=== PATIENT | male | born 1990 | race Two or more races ===

== ENCOUNTER 2018-02-07 18:30 | Inpatient (IN) | payer OTHER ==
[2018-02-07 19:39] VITALS: BMI 32.1
--- NOTE | 2018-02-07 19:42 | HP ---
CIWA Score Nausea/Vomitin-No Nausea/No Vomiting Muscle Tremors: 2 Anxiety: 4-Mod. Anxious/Guarded Agitation: 4-Moderately Restless Paroxysmal Sweats: 3 Orientation: 0-Oriented Tacttile Disturbances: 0-None Auditory Disturbances: 0-None Visual Disturbances: 0-None Headache: 0-None Present CIWA-Ar Total Score: 13 - Admission Criteria OASAS Guidelines: Admission for Medically Managed Detox: Requires at least one of the followin. CIWA greater than 12 2. Seizures within the past 24 hours 3. Delirium tremens within the past 24 hours 4. Hallucinations within the past 24 hours 5. Acute intervention needed for co occurring medical disorder 6. Acute intervention needed for co occurring psychiatric disorder 7. Severe withdrawal that cannot be handled at a lower level of care (continued vomiting, continued diarrhea, abnormal vital signs) requiring intravenous medication and/or fluids 8. Patient presents the following: CIWA greater than 12 Admission Criteria Met: Admission criteria met Admission ROS S - HPI Chief Complaint: "I want to detox myself. I am doing more and more and just need to stop" Allergies/Adverse Reactions: Allergies Allergy/AdvReac Type Severity Reaction Status Date / Time meloxicam Allergy Severe Swelling Verified 02/07/18 19:12 Penicillins Allergy Severe Swelling Verified 02/07/18 19:12 shellfish derived Allergy Severe Swelling Verified 02/07/18 19:12 History of Present Illness: 27 y/o male with a long history of drug addiction present today requesting detox from oxycodones, xanax and percocets. Pt states he has beein using percocets from age 17 and xanax from about [age] yrs of age. Pt was last here in 2014 after whiuch he states he has been using. This is his second attempt at detox and is self referred. Endorses withdrawal related seizures, last seizure about a yr ago. Denies past or current suicidal ideation/attempt. Hx - Asthma, Seizures, Eczema, Depression, Insomnia. Others' Prescriptions Patient Name: Fredrick Green Date: 1990 Address: [address] [place] [address] Sex: Male Rx Written Rx Dispensed Drug Quantity Days Supply Prescriber Name 02/05/2018 02/06/2018 endocet 10-325 mg tablet 120 30 Poonam Cosby) 01/08/2018 01/08/2018 endocet 10-325 mg tablet 120 30 Poonam Cosby) 12/11/2017 12/11/2017 oxycodone-acetaminophen 10-325 mg tab 120 30 Poonam Cosby) 11/12/2017 11/12/2017 oxycodone-acetaminophen 10-325 mg tab 120 30 Poonam Cosby) 10/15/2017 10/15/2017 oxycodone-acetaminophen 10-325 mg tab 110 28 Poonam Cosby) 09/17/2017 09/17/2017 oxycodone-acetaminophen 10-325 mg tab 120 30 Poonam Cosby) 08/15/2017 08/15/2017 oxycodone-acetaminophen 10-325 mg tab 120 30 Poonam Cosby) 07/18/2017 07/18/2017 endocet 10-325 mg tablet 120 30 [facility] 06/18/2017 06/18/2017 endocet 10-325 mg tablet 120 30 [facility] 05/21/2017 05/22/2017 endocet 10-325 mg tablet 90 30 [facility] 04/23/2017 04/23/2017 endocet 10-325 mg tablet 90 30 [facility] 04/14/2017 04/14/2017 oxycodone-acetaminophen 5-325 mg tab 20 10 Ragini Holden) 04/10/2017 04/10/2017 oxycodone-acetaminophen 5-325 mg tab 5 2 Ragini Holden) 03/12/2017 03/12/2017 acetaminophen-cod #3 tablet 14 7 Scarlett Wolf MD 02/28/2017 02/28/2017 oxycodone-acetaminophen 5-325 mg tab 20 10 Ragini Holden) 02/24/2017 02/25/2017 endocet 10-325 mg tablet 28 7 Ragini Holden) 02/19/2017 02/20/2017 endocet 10-325 mg tablet 28 7 Ragini Holden) Pt's utox positive for Oxy, THC and BZo's Pt requesting to be detoxed from opiates and Benzos, he admitted picking up his prescription from the pharmacy yesterday (after he had initially denied it), but stated he forgot it in the cab he took. Explained to pt that in view of his prescribed Percocets, he will be detoxed based on his positive Bzo in the urine. Explained also that symptoms of opiate withdrawal if any will be managed. Exam Limitations: No Limitations - Ebola screening Have you traveled outside of the country in the last 21 days: No (N) Have you had contact with anyone from an Ebola affected area: No Have you been sick,other than usual withdrawal symptoms: No Do you have a fever: No - Review of Systems Constitutional: Night Sweats, Changes in sleep Respiratory: reports: Wheezing (Hx of asthma, none at this time) Cardiac: reports: No Symptoms Reported GI: reports: Vomiting : reports: No Symptoms Reported Musculoskeletal: reports: Back Pain, Joint Pain, Other (SCrews in R shoulder s/ p dislocation) Integumentary: reports: Other (generalized eczema) Neuro: reports: No Symptoms reported Endocrine: reports: No Symptoms Reported Hematology: reports: No Symptoms Reported Psychiatric: reports: Orientated x3, Anxious, Depressed Other Systems: Reviewed and Negative Patient History - Patient Medical History Hx Anemia: No Hx Asthma: Yes (On meds) Hx Chronic Obstructive Pulmonary Disease (COPD): No Hx Cancer: No Hx Cardiac Disorders: No Hx Congestive Heart Failure: No Hx Hypertension: No (reactive hypertension intermittent ) Hx Hypercholesterolemia: No Hx Pacemaker: No HX Cerebrovascular Accident: No Hx Seizures: Yes (ON MEDS KEPPRA) Hx Dementia: No Hx Diabetes: No Hx Gastrointestinal Disorders: No Hx Liver Disease: No Hx Genitourinary Disorders: No Hx Sexually Transmitted Disorders: No Hx Renal Disease (ESRD): No Hx Thyroid Disease: No Hx Human Immunodeficiency Virus (HIV): No Hx Hepatitis C: No Hx Depression: Yes (not medicated ) Hx Suicide Attempt: No (Denies) Hx Bipolar Disorder: No Hx Schizophrenia: No - Patient Surgical History Past Surgical History: Yes Hx Neurologic Surgery: Yes (right shoulder nerve release 01/2017) Hx Cataract Extraction: No Hx Cardiac Surgery: No Hx Lung Surgery: No Hx Breast Surgery: No Hx Breast Biopsy: No Hx Abdominal Surgery: No Hx Appendectomy: No Hx Cholecystectomy: No Hx Genitourinary Surgery: No Hx Orthopedic Surgery: Yes (right foot 2007, R shoulder 01/2018) Hx Hysterectomy: No Anesthesia Reaction: No - PPD History Previous Implant?: Yes Documented Results: Negative w/proof Date: 11/07/15 PPD to be Administered?: Yes - Reproductive History Patient is a Female of Child Bearing Age (11 -55 yrs old): No - Smoking Cessation Smoking history: Current every day smoker Have you smoked in the past 12 months: Yes Aproximately how many cigarettes per day: 20 Cigars Per Day: 0 Hx Chewing Tobacco Use: No Initiated information on smoking cessation: Yes 'Breaking Loose' booklet given: 02/07/18 - Substance & Tx. History Hx Alcohol Use: No Hx Substance Use: Yes Substance Use Type: Opiates, Tranquilizers Hx Substance Use Treatment: Yes - Substances Abused Alprazolam (Xanax) Route: Oral Frequency: Daily Amount used: 6-10 (2mg) tablets Age of first use: 20 Date of Last Use: 02/07/18 Oxycontin Route: Oral Frequency: Daily Amount used: 3-4 (30 mg) tablets Age of first use: 17 Date of Last Use: 02/07/18 Marijuana/Hashish Route: Smoking Frequency: Daily Amount used: 7-9 grams Age of first use: 12 Date of Last Use: 02/07/18 percocept Route: Oral Frequency: Daily Amount used: 8-12 (10mg) tablet Age of first use: 17 Date of Last Use: 02/07/18 Family Disease History - Family Disease History Family Disease History: Other: Father (, Alcohol, Depression), Mother ( Anxiety, Insomnia) Admission Physical Exam S - Vital Signs Vital Signs: Vital Signs - 24 hr 02/07/18 18:45 Temperature 97.7 F Pulse Rate 97 H Respiratory 18 Rate Blood Pressure 147/91 - Physical General Appearance: Yes: Mild Distress, Anxious HEENTM: Yes: Within Normal Limits Respiratory: Yes: Lungs Clear, No Respiratory Distress, No Accessory Muscle Use Neck: Yes: No masses,lesions,Nodules, Trachea in good position Breast: Yes: Breast Exam Deferred Cardiology: Yes: Regular Rate Abdominal: Yes: Non Tender, Soft Genitourinary: Yes: Within Normal Limits Back: Yes: Normal Inspection, Other Musculoskeletal: Yes: full range of Motion, Gait Steady Extremities: Yes: Normal Capillary Refill, Normal Inspection Neurological: Yes: Within Normal Limits, Fully Oriented, Alert, Motor Strength 5 /5 Integumentary: Yes: Dry, Other (generalized dry scaly skin) - Diagnostic (1) Uncomplicated opioid dependence Current Visit: Yes Status: Acute (2) Sedative hypnotic or anxiolytic dependence Current Visit: Yes Status: Acute (3) Asthma Current Visit: Yes Status: Chronic (4) Depression (emotion) Current Visit: Yes Status: Chronic (5) Seizures Current Visit: Yes Status: Chronic (6) Cannabis dependence Current Visit: Yes Status: Chronic Cleared for Admission [facility] - Detox or Rehab [facility] Level of Care: Medically Managed Detox Regimen/Protocol: Valium [facility] Breath Alcohol Content Breath Alcohol Content: 0 Urine Drug Screen - Results Drug Screen Negative: No Urine Drug Screen Results: THC-Marijuana, BZO-Benzodiazepines, OXY-Oxycodone
[2018-02-07] MEDS ORDERED: guaiFENesin/D-METHORPHAN HB 10 ML UNIT-DOSE CUPS PO PRN (20:32)
[2018-02-07] MEDS ORDERED: MAG HYDROX/AL HYDROX/SIMETH 30 ML UNIT-DOSE CUP PO PRN (20:32)
[2018-02-07] MEDS ORDERED: MENTHOL/PHENOL 1 EACH UD MM PRN (20:32)
[2018-02-07] MEDS ORDERED: METHADONE HCL 10 MG TABLET (FOR DETOX USE ONLY) PO ONE ×2 (20:32→23:00)
[2018-02-07] MEDS ORDERED: LOPERAMIDE HCL 2 MG CAPSULE PO PRN (20:32)
[2018-02-07] MEDS ORDERED: P-EPHED 60MG/TRIPROLIDI 2.5MG TABLET PO PRN (20:32)
[2018-02-07] MEDS ORDERED: MAGNESIUM CITRATE 300 ML BOTTLE PO PRN (20:32)
[2018-02-07] MEDS ORDERED: MAGNESIUM HYDROX 2400MG/30ML ORAL SUSPENSION 30 ML CUP PO PRN (20:32)
[2018-02-07] MEDS ORDERED: diazePAM 5 MG TABLET PO ONE (20:32)
[2018-02-07] MEDS ORDERED: ALBUTEROL SO4 2.5/IPRATROPIUM 0.5 INH SOL 3 ML VIAL.NEB. NEB PRN (20:43)
[2018-02-07] MEDS: levETIRAcetam 500 MG TABLET (FP) PO SCH (22:07)
[2018-02-07] MEDS: TRIAMCINOLONE ACET 0.1% OINT 15 GM TUBE TP SCH (22:07)
[2018-02-07] MEDS: MONTELUKAST NA 10 MG TABLET PO SCH (22:07)
[2018-02-07] MEDS: MELATONIN 5 MG TABLETS PO PRN (22:07)
[2018-02-07] MEDS: diazePAM 5 MG TABLET PO SCH (22:07)
[2018-02-07] MEDS: THIAMINE HCL 100 MG TABLET (FP) PO SCH (22:07)
[2018-02-07] MEDS: cloNIDine HCL 0.1 MG TABLET PO PRN (22:07)
[2018-02-07] MEDS: NICOTINE POLACRILEX 4 MG GUM BUC PRN (22:50)
[2018-02-08] MEDS: diazePAM 5 MG TABLET PO PRN ×4 (01:36→19:22)
[2018-02-08] MEDS: ALBUTEROL SO4 8 GM HFA INHALER IH PRN ×2 (01:36→19:26)
[2018-02-08] MEDS: ACETAMINOPHEN 325 MG TABLET (FP) PO PRN ×3 (01:37→18:10)
[2018-02-08] MEDS: NICOTINE POLACRILEX 4 MG GUM BUC PRN ×5 (02:32→23:46)
[2018-02-08] MEDS ORDERED: hydrOXYzine PAMOATE 50 MG CAPSULE (FP) PO ONE (02:37)
[2018-02-08] MEDS: diazePAM 5 MG TABLET PO SCH ×3 (05:17→22:19)
[2018-02-08] MEDS: cloNIDine HCL 0.1 MG TABLET PO PRN ×3 (06:01→22:19)
--- NOTE | 2018-02-08 07:43 | CONSULT ---
[facility] Psychiatric Consult - Data Date of interview: 02/08/18 Admission source: Self-referred Identifying data: Mr Green is a 27 years old single male, father of 2 children, unemployed on SSI, domiciled seeking detox treatment for Opioid, Bezodiaxepine and Cannabis Substance Abuse History: Reports history of percocet, oxycontin, xanax and marijuana use. Refer to addiction counselor's summary for further information Medical History: Significant for bronchial asthma, eczema, seizure disorder and multiple surgeries( bunion right foot at age 17 & dislocation right shoulder in 2017). Smokes cigarettes 1 ppd Psychiatric History: Denies history of previous psychiatric treatment Physical/Sexual Abuse/Trauma History: Denies history of emotional, physical or sexual abuse as well as DV relationship. No service Additional Comment: Reports history of 3 previous misdemeanor arrests. No probation at present Mental Status Exam - Mental Status Exam Alert and Oriented to: Time, Place, Person Cognitive Function: Fair Patient Appearance: Well Groomed Mood: Depressed Affect: Appropriate Patient Behavior: Cooperative Speech Pattern: Rambling Voice Loudness: Normal Thought Process: Intact, Goal Oriented Thought Disorder: Not Present Hallucinations: Denies Suicidal Ideation: Denies Homicidal Ideation: Denies Insight/Judgement: Fair Sleep: Poorly Appetite: Poor Muscle strength/Tone: Normal Gait/Station: Normal Psychiatric Findings - Problem List ([place] 1, 2,3) (1) Substance induced mood disorder Current Visit: Yes Status: Acute (2) Substance-induced sleep disorder Current Visit: Yes Status: Acute (3) Uncomplicated opioid dependence Current Visit: Yes Status: Acute (4) Sedative hypnotic or anxiolytic dependence Current Visit: Yes Status: Acute (5) Cannabis dependence Current Visit: Yes Status: Acute (6) Nicotine dependence Current Visit: Yes Status: Chronic (7) Bronchial asthma Current Visit: No Status: Acute - Initial Treatment Plan Initial Treatment Plan: 1) Start Belsomra 10 mg po HS prn for insomnia. 2) Continue inpatient detoxification
[2018-02-08] MEDS ORDERED: METHADONE HCL 10 MG TABLET (FOR DETOX USE ONLY) PO SCH (10:00)
[2018-02-08] MEDS: TRIAMCINOLONE ACET 0.1% OINT 15 GM TUBE TP SCH ×2 (10:19→22:18)
[2018-02-08] MEDS: levETIRAcetam 500 MG TABLET (FP) PO SCH ×2 (10:19→22:19)
[2018-02-08] MEDS: PRENATAL VITAMINS W/ FOLIC ACID TABLET (FP) PO SCH (10:20)
[2018-02-08 10:31] LABS: HEMOGLOBIN 13.1 GM/dL (11.7-16.9); MCH 30.9 pg (25.7-33.7); MCHC 32.7 g/dl (32.0-35.9); MEAN CELL VOLUME 94.4 fl (80-96); MEAN PLT VOLUME 9.3 fl (7.5-11.1); PLATELET COUNT 257 K/MM3 (134-434); RBC 4.23 M/mm3 (4.00-5.60); RDW 13.9 % (11.9-15.9); WHITE BLOOD COUNT 5.5 K/mm3 (4.0-10.0)
[2018-02-08 10:45] LABS: ALBUMIN 3.5 g/dl (3.4-5.0); ALK PHOS 57 U/L (45-117); ANION GAP 10 MMOL/L (8-16); BILIRUBIN,TOTAL 0.4 mg/dL (0.2-1); BLOOD UREA NITROGEN 11 mg/dL (7-18); CALCIUM 8.9 mg/dL (8.5-10.1); CHLORIDE 105 mmol/L (98-107); CO2 25 mmol/L (21-32); CREATININE 0.9 mg/dL (0.55-1.3); GLUCOSE,RANDOM 114 mg/dL (74-106); POTASSIUM 3.6 mmol/L (3.5-5.1); SGOT/AST 28 U/L (15-37); SGPT/ALT 29 U/L (13-61); SODIUM 140 mmol/L (136-145); TOT PROT 6.7 g/dl (6.4-8.2)
[2018-02-08 11:21] LABS: URINE APPEARANCE TURBID; URINE BILIRUBIN NEGATIVE (<2.0 mg/dL); URINE COLOR YELLOW; URINE GLUCOSE (UA) NEGATIVE (NEGATIVE); URINE KETONE NEGATIVE (NEGATIVE); URINE LEUK ESTERASE NEGATIVE (NEGATIVE); URINE NITRITE NEGATIVE (NEGATIVE); URINE PROTEIN 1+ (NEGATIVE); URINE UROBILINOGEN 4.0 E.U/dl mg/dL (0.2-1.0)
[2018-02-08 11:25] LABS: URINE BACTERIA MANY /hpf (NONE SEEN); URINE MUCUS MANY
[2018-02-08] MEDS ORDERED: PNEUMOC 13-VAL CONJ-DIP CRM/PF 0.5 ML DISP.SYRIN IM ONE (12:00)
--- NOTE | 2018-02-08 12:35 | EKG ---
Test Reason : Blood Pressure : / mmHG Vent. Rate : 085 BPM Atrial Rate : 085 BPM P-R Int : 142 ms QRS Dur : 100 ms QT Int : 384 ms P-R-T Axes : 049 043 036 degrees QTc Int : 456 ms NORMAL SINUS RHYTHM NORMAL ECG NO PREVIOUS ECGS AVAILABLE Confirmed by Scout Sanchez ([id number]) on 02/08/2018 12:35:18 PM Referred By: Confirmed By:Scout Sanchez
[2018-02-08] MEDS: hydrOXYzine PAMOATE 50 MG CAPSULE (FP) PO PRN ×2 (13:30→19:22)
[2018-02-08] MEDS: CYCLOBENZAPRINE HCL 10 MG TABLET (FP) PO PRN ×2 (13:31→22:19)
--- NOTE | 2018-02-08 14:22 | PN ---
S CIWA - CIWA Score Nausea/Vomitin Muscle Tremors: 4-Moderate,w/Arms Extend Anxiety: 4-Mod. Anxious/Guarded Agitation: 2 Paroxysmal Sweats: 3 Orientation: 0-Oriented Tacttile Disturbances: 0-None Auditory Disturbances: 0-None Visual Disturbances: 0-None Headache: 1-Very Mild CIWA-Ar Total Score: 16 S Progress Note (SOAP) Subjective: Chills, sweating, back pain, interrupted sleep Objective: 02/08/18 14:20 Last Vital Signs Temp Pulse Resp BP Pulse Ox 99.0 F 64 18 134/90 02/08/18 09:54 02/08/18 14:18 02/08/18 13:47 02/08/18 14:18 Elevated b/p (denies htn) Laboratory Tests 02/08/18 02/08/18 02/08/18 07:40 07:40 07:40 WBC 5.5 RBC 4.23 Hgb 13.1 Hct 40.0 MCV 94.4 MCH 30.9 MCHC 32.7 RDW 13.9 Plt Count 257 MPV 9.3 Sodium 140 Potassium 3.6 Chloride 105 Carbon Dioxide 25 Anion Gap 10 BUN 11 Creatinine 0.9 Creat Clearance w eGFR > 60 Random Glucose 114 H Calcium 8.9 Total Bilirubin 0.4 AST 28 ALT 29 Alkaline Phosphatase 57 Total Protein 6.7 Albumin 3.5 Urine Color Urine Appearance Urine pH Ur Specific [place] Urine Protein Urine Glucose (UA) Urine Ketones Urine Blood Urine Nitrite Urine Bilirubin Urine Urobilinogen Ur Leukocyte Esterase Urine WBC (Auto) Urine RBC (Auto) Urine Bacteria Urine Mucus RPR Titer Nonreactive 02/08/18 07:40 WBC RBC Hgb Hct MCV MCH MCHC RDW Plt Count MPV Sodium Potassium Chloride Carbon Dioxide Anion Gap BUN Creatinine Creat Clearance w eGFR Random Glucose Calcium Total Bilirubin AST ALT Alkaline Phosphatase Total Protein Albumin Urine Color Yellow Urine Appearance Turbid Urine pH 5.0 Ur Specific [place] 1.035 Urine Protein 1+ H Urine Glucose (UA) Negative Urine Ketones Negative Urine Blood Negative Urine Nitrite Negative Urine Bilirubin Negative Urine Urobilinogen 4.0 e.u/dl Ur Leukocyte Esterase Negative Urine WBC (Auto) None Urine RBC (Auto) None Urine Bacteria Many Urine Mucus Many RPR Titer Labs reviewed: UA abnormal Assessment: 02/08/18 14:21 Withdrawal symptoms Noted with abnormal UA Plan: Continue detox Abnormal UA: encouraged PO water intake, repeat UA
[2018-02-08] MEDS: THIAMINE HCL 100 MG TABLET (FP) PO SCH (22:19)
[2018-02-08] MEDS: MONTELUKAST NA 10 MG TABLET PO SCH (22:19)
[2018-02-08] MEDS: SUVOREXANT 10 MG TABLET PO PRN (22:21)
[2018-02-08] MEDS: IBUPROFEN 400 MG TABLET (FP) PO PRN (23:44)
[2018-02-08] MEDS: MELATONIN 5 MG TABLETS PO PRN (23:45)
[2018-02-09] MEDS: ACETAMINOPHEN 325 MG TABLET (FP) PO PRN ×2 (00:24→13:08)
[2018-02-09] MEDS: diazePAM 5 MG TABLET PO PRN ×4 (00:24→17:12)
[2018-02-09] MEDS: cloNIDine HCL 0.1 MG TABLET PO PRN ×2 (07:48→22:03)
[2018-02-09] MEDS: IBUPROFEN 400 MG TABLET (FP) PO PRN (07:49)
[2018-02-09] MEDS: NICOTINE POLACRILEX 4 MG GUM BUC PRN ×3 (07:54→23:14)
[2018-02-09] MEDS ORDERED: METHADONE HCL 5 MG TABLET (FOR DETOX USE ONLY) PO SCH (10:00)
[2018-02-09] MEDS: PRENATAL VITAMINS W/ FOLIC ACID TABLET (FP) PO SCH (10:21)
[2018-02-09] MEDS: levETIRAcetam 500 MG TABLET (FP) PO SCH ×2 (10:21→22:02)
[2018-02-09] MEDS: CYCLOBENZAPRINE HCL 10 MG TABLET (FP) PO PRN ×2 (10:21→22:03)
[2018-02-09] MEDS: diazePAM 5 MG TABLET PO SCH ×2 (10:21→22:02)
[2018-02-09] MEDS: TRIAMCINOLONE ACET 0.1% OINT 15 GM TUBE TP SCH ×2 (10:22→22:00)
[2018-02-09] MEDS: ALBUTEROL SO4 8 GM HFA INHALER IH PRN ×3 (10:22→21:05)
--- NOTE | 2018-02-09 14:39 | PN ---
S CIWA - CIWA Score Nausea/Vomitin-No Nausea/No Vomiting Muscle Tremors: 4-Moderate,w/Arms Extend Anxiety: 1-Mildly Anxious Agitation: 1-Slight > Activity Paroxysmal Sweats: 3 (Facial moisture) Orientation: 0-Oriented Tacttile Disturbances: 0-None Auditory Disturbances: 0-None Visual Disturbances: 0-None Headache: 0-None Present CIWA-Ar Total Score: 9 BHS COWS - Scale Resting Pulse: 0= TN 80 or Below Sweatin=Flushed/Facial Moisture Restless Observation: 1= Difficult to Sit Still Pupil Size: 2= Moderately Dilated Bone or Joint Aches: 2= Severe Diffuse Aches Runny Nose/ Eye Tearin= Nasal Congestion GI Upset > 30mins: 0= None Tremor Observation of Outstretched Hands: 2= Slight Tremor Visible (Moderate w/ arms stretched) Yawning Observation: 0= None Anxiety or Irritability: 1=Feels Anxious/Irritable Goose Flesh Skin: 0=Smooth Skin COWS Score: 11 BHS Progress Note (SOAP) Subjective: Patient feeling chills, sweats, back pain. Denies nausea, vomiting, diarrhea. C/o chronic shoulder pain with minimal relief from pain medication. States will wait to see if pain meds work better after withdrawal symptoms are stabilized. Received letter from Dr. Poonam Cosby @ patient's [facility] @ [facility]. Dr. Cosby agrees to support patients' detox from prescribed opiates and benzodiazepines. After discussion, patient requests buprenorphine and will be f/u at [facility] for continued treatment and eventual abstinence. Objective: A&0 x 3. Pupils at 5 mm. (See COWS/CIWA) Abd S/NT/BS+ Skin dry, except for increased facial moisture at forehead. Vital Signs - 24 hr 02/08/18 02/08/18 02/09/18 17:42 20:57 03:30 Temperature 97.1 F L Pulse Rate 55 L 60 Respiratory 18 18 18 Rate Blood Pressure 100/61 112/65 02/09/18 02/09/18 02/09/18 06:30 07:32 09:42 Temperature 96.5 F L 95.9 F L Pulse Rate 53 L 66 Respiratory 18 16 18 Rate Blood Pressure 119/69 119/72 Lab Results WBC 5.5 K/mm3 (4.0-10.0) 02/08/18 07:40 RBC 4.23 M/mm3 (4.00-5.60) 02/08/18 07:40 Hgb 13.1 GM/dL (11.7-16.9) 02/08/18 07:40 Hct 40.0 % (35.4-49) 02/08/18 07:40 MCV 94.4 fl (80-96) 02/08/18 07:40 MCHC 32.7 g/dl (32.0-35.9) 02/08/18 07:40 RDW 13.9 % (11.9-15.9) 02/08/18 07:40 Plt Count 257 K/MM3 (134-434) 02/08/18 07:40 Sodium 140 mmol/L (136-145) 02/08/18 07:40 Potassium 3.6 mmol/L (3.5-5.1) 02/08/18 07:40 Chloride 105 mmol/L (98-107) 02/08/18 07:40 Carbon Dioxide 25 mmol/L (21-32) 02/08/18 07:40 Anion Gap 10 MMOL/L (8-16) 02/08/18 07:40 BUN 11 mg/dL (7-18) 02/08/18 07:40 Creatinine 0.9 mg/dL (0.55-1.3) 02/08/18 07:40 Random Glucose 114 mg/dL (74-106) H 02/08/18 07:40 Calcium 8.9 mg/dL (8.5-10.1) 02/08/18 07:40 Labs reviewed. Assessment: Opiate and anxiolytic withdrawal Dry skin Plan: Continue detox regimen. Aveeno soap. Start Buprenorphine 4 mg now, 4 mg at 2300 and then 8 mg in am. Will d/c CloNidine in am.
[2018-02-09] MEDS ORDERED: BUPRENORPHINE/NALOXONE 2 MG/0.5 MG FILM PACKET SL ONE ×2 (17:30→23:00)
[2018-02-09] MEDS: MONTELUKAST NA 10 MG TABLET PO SCH (22:02)
[2018-02-09] MEDS ORDERED: COLLOIDAL OATMEAL 1 BAR EACH TP PRN (22:02)
[2018-02-09] MEDS: THIAMINE HCL 100 MG TABLET (FP) PO SCH (22:03)
[2018-02-09] MEDS: hydrOXYzine PAMOATE 50 MG CAPSULE (FP) PO PRN (22:05)
[2018-02-09] MEDS: SUVOREXANT 10 MG TABLET PO PRN (23:13)
[2018-02-10] MEDS: MELATONIN 5 MG TABLETS PO PRN (02:19)
[2018-02-10] MEDS: IBUPROFEN 400 MG TABLET (FP) PO PRN ×2 (02:19→16:35)
[2018-02-10] MEDS: NICOTINE POLACRILEX 4 MG GUM BUC PRN ×2 (04:25→13:40)
[2018-02-10] MEDS: TRIAMCINOLONE ACET 0.1% OINT 15 GM TUBE TP SCH (10:26)
[2018-02-10] MEDS: BUPRENORPHINE/NALOXONE 8 MG/2 MG FILM PACKET SL SCH (10:26)
[2018-02-10] MEDS: levETIRAcetam 500 MG TABLET (FP) PO SCH ×2 (10:26→22:06)
[2018-02-10] MEDS: diazePAM 5 MG TABLET PO SCH ×2 (10:26→22:07)
[2018-02-10] MEDS: PRENATAL VITAMINS W/ FOLIC ACID TABLET (FP) PO SCH (10:26)
[2018-02-10] MEDS: CYCLOBENZAPRINE HCL 10 MG TABLET (FP) PO PRN ×2 (10:28→22:08)
[2018-02-10] MEDS: ALBUTEROL SO4 8 GM HFA INHALER IH PRN (10:29)
--- NOTE | 2018-02-10 10:39 | PN ---
S CIWA - CIWA Score Nausea/Vomitin-No Nausea/No Vomiting Muscle Tremors: 2 Anxiety: 2 Agitation: 2 Paroxysmal Sweats: No Perspiration Orientation: 0-Oriented Tacttile Disturbances: 2-Mild Itch/Numbness/Burn Auditory Disturbances: 0-None Visual Disturbances: 0-None Headache: 0-None Present CIWA-Ar Total Score: 8 BHS Progress Note (SOAP) Subjective: PATIENT C/O ITCHING AND RASH TO FACE, ANXIOUS AND RESTLESS AND SHAKES. Objective: 02/10/18 10:36 Vital Signs Temperature 96.5 F L 02/10/18 09:27 Pulse Rate 60 02/10/18 09:27 Respiratory Rate 16 02/10/18 09:27 Blood Pressure 99/61 02/10/18 09:27 O2 Sat by Pulse Oximetry (%) Laboratory Tests 02/08/18 02/08/18 02/08/18 07:40 07:40 07:40 WBC 5.5 RBC 4.23 Hgb 13.1 Hct 40.0 MCV 94.4 MCH 30.9 MCHC 32.7 RDW 13.9 Plt Count 257 MPV 9.3 Sodium 140 Potassium 3.6 Chloride 105 Carbon Dioxide 25 Anion Gap 10 BUN 11 Creatinine 0.9 Creat Clearance w eGFR > 60 Random Glucose 114 H Calcium 8.9 Total Bilirubin 0.4 AST 28 ALT 29 Alkaline Phosphatase 57 Total Protein 6.7 Albumin 3.5 Urine Color Urine Appearance Urine pH Ur Specific [place] Urine Protein Urine Glucose (UA) Urine Ketones Urine Blood Urine Nitrite Urine Bilirubin Urine Urobilinogen Ur Leukocyte Esterase Urine WBC (Auto) Urine RBC (Auto) Urine Bacteria Urine Mucus RPR Titer Nonreactive 02/08/18 07:40 WBC RBC Hgb Hct MCV MCH MCHC RDW Plt Count MPV Sodium Potassium Chloride Carbon Dioxide Anion Gap BUN Creatinine Creat Clearance w eGFR Random Glucose Calcium Total Bilirubin AST ALT Alkaline Phosphatase Total Protein Albumin Urine Color Yellow Urine Appearance Turbid Urine pH 5.0 Ur Specific [place] 1.035 Urine Protein 1+ H Urine Glucose (UA) Negative Urine Ketones Negative Urine Blood Negative Urine Nitrite Negative Urine Bilirubin Negative Urine Urobilinogen 4.0 e.u/dl Ur Leukocyte Esterase Negative Urine WBC (Auto) None Urine RBC (Auto) None Urine Bacteria Many Urine Mucus Many RPR Titer PE: ALERT AND ORIENTED X 3 +FACIAL RASH TO FOREHEAD AND CHEEKS CAR S1S2 RESP CTA BL EXT FULL FROM, AMB AD JOSE F, +TREMORS Assessment: 02/10/18 10:38 WITHDRAWAL SX Plan: CONTINUE DETOX REGIMEN ENCOURAGE ORAL FLUIDS D/C TRIAMINCINOLONE CREAM HYTONE 0.5% ORDERED BID CONTINUE TO MONITOR CLINICALLY
[2018-02-10] MEDS: HYDROCORTISONE 0.5% TOPICAL OINTMENT TUBE TP SCH ×2 (12:11→23:44)
[2018-02-10] MEDS: hydrOXYzine PAMOATE 50 MG CAPSULE (FP) PO PRN (13:39)
[2018-02-10] MEDS: diazePAM 5 MG TABLET PO PRN (16:35)
[2018-02-10 21:43] VITALS: TEMP 97.6
[2018-02-10] MEDS: SUVOREXANT 10 MG TABLET PO PRN (22:05)
[2018-02-10] MEDS: THIAMINE HCL 100 MG TABLET (FP) PO SCH (22:06)
[2018-02-10] MEDS: MONTELUKAST NA 10 MG TABLET PO SCH (22:06)
[2018-02-11 06:18] VITALS: BP 99/62; PULSE 65
[2018-02-11] MEDS: ALBUTEROL SO4 8 GM HFA INHALER IH PRN (08:41)
[2018-02-11] MEDS: levETIRAcetam 500 MG TABLET (FP) PO SCH (09:02)
[2018-02-11] MEDS: BUPRENORPHINE/NALOXONE 8 MG/2 MG FILM PACKET SL SCH (09:02)
[2018-02-11] MEDS ORDERED: METHADONE HCL 10 MG TABLET (FOR DETOX USE ONLY) PO SCH (10:00)
[2018-02-11] MEDS ORDERED: diazePAM 5 MG TABLET PO SCH (10:00)
--- NOTE | 2018-02-11 11:59 | DS ---
[facility] Detox Discharge Summary Admission Date: 02/07/18 Discharge Date: 02/11/18 - History Present History: Cannabis Dependence, Opioid Dependence, Sedative Dependence Additional Comments: Patient completed detox successfully. Instructed to follow up with PCP within 1- 2 weeks. Pertinent Past History: Opioid dependence Sedative dependence Cannabis dependence Asthma Depression Seizure disorder - Physical Exam Results Vital Signs: Vital Signs Temperature 97.6 F 02/11/18 06:17 Pulse Rate 65 02/11/18 06:17 Respiratory Rate 18 02/11/18 06:17 Blood Pressure 99/62 02/11/18 06:17 O2 Sat by Pulse Oximetry (%) Pertinent Admission Physical Exam Findings: Withdrawal symptoms Laboratory Tests 02/08/18 02/08/18 02/08/18 07:40 07:40 07:40 WBC 5.5 RBC 4.23 Hgb 13.1 Hct 40.0 MCV 94.4 MCH 30.9 MCHC 32.7 RDW 13.9 Plt Count 257 MPV 9.3 Sodium 140 Potassium 3.6 Chloride 105 Carbon Dioxide 25 Anion Gap 10 BUN 11 Creatinine 0.9 Creat Clearance w eGFR > 60 Random Glucose 114 H Calcium 8.9 Total Bilirubin 0.4 AST 28 ALT 29 Alkaline Phosphatase 57 Total Protein 6.7 Albumin 3.5 Urine Color Urine Appearance Urine pH Ur Specific [place] Urine Protein Urine Glucose (UA) Urine Ketones Urine Blood Urine Nitrite Urine Bilirubin Urine Urobilinogen Ur Leukocyte Esterase Urine WBC (Auto) Urine RBC (Auto) Urine Bacteria Urine Mucus RPR Titer Nonreactive 02/08/18 07:40 WBC RBC Hgb Hct MCV MCH MCHC RDW Plt Count MPV Sodium Potassium Chloride Carbon Dioxide Anion Gap BUN Creatinine Creat Clearance w eGFR Random Glucose Calcium Total Bilirubin AST ALT Alkaline Phosphatase Total Protein Albumin Urine Color Yellow Urine Appearance Turbid Urine pH 5.0 Ur Specific [place] 1.035 Urine Protein 1+ H Urine Glucose (UA) Negative Urine Ketones Negative Urine Blood Negative Urine Nitrite Negative Urine Bilirubin Negative Urine Urobilinogen 4.0 e.u/dl Ur Leukocyte Esterase Negative Urine WBC (Auto) None Urine RBC (Auto) None Urine Bacteria Many Urine Mucus Many RPR Titer Labs reviewed: abnormal UA (reordered but no specimen received), encouraged PO water hydration and to follow up with PCP - Treatment Hospital Course: Detox Protocol Followed, Detoxed Safely, Responded well, Discharged Condition Good - Medication Discharge Medications: Ambulatory Orders Triamcinolone 0.1% Ointment [Aristocort 0.1% Ointment -] 1 applic TP BID Albuterol Sulfate Inhaler - [Ventolin HFA Inhaler -] 2 inh PO Q4H PRN #1 inhaler 02/10/18 Buprenorphine/Naloxone [Suboxone 8Mg/2Mg Sl Film -] 1 each SL DAILY 7 Days #7 film MDD 8MG/2MG 02/10/18 Montelukast Sodium [Singulair] 10 mg PO HS 14 Days #14 tablet 02/10/18 levETIRAcetam [Keppra -] 500 mg PO BID 10 Days #20 tablet 02/10/18 - Diagnosis (1) Abnormal finding on urinalysis Status: Acute (2) Cannabis dependence Status: Chronic (3) Sedative hypnotic or anxiolytic dependence Status: Acute (4) Asthma Status: Chronic (5) Depression (emotion) Status: Chronic (6) Seizures Status: Chronic (7) Opioid dependence Status: Chronic - AMA Did Patient Leave Against Medical Advice: No (F/U with PCP within 1-2 weeks)
[2018-02-12] MEDS ORDERED: METHADONE HCL 5 MG TABLET (FOR DETOX USE ONLY) PO SCH (06:00)
== END 2018-02-11 09:07 | disposition home or self-care (01) | DRG 773 ==
LOC: YASAS 18:30 → Y3N 20:48
PROC: HZ2ZZZZ Detoxification Services for Substance Abuse Treatment (ICD-10-PCS; principal; 2018-02-07)
DX: F11.20 Opioid dependence, uncomplicated (principal); F13.20 Sedative, hypnotic or anxiolytic dependence, uncomplicated; F12.20 Cannabis dependence, uncomplicated; F17.210 Nicotine dependence, cigarettes, uncomplicated; F34.1 Dysthymic disorder; F19.24 Other psychoactive substance dependence with psychoactive substance-induced mood disorder; F19.282 Other psychoactive substance dependence with psychoactive substance-induced sleep disorder; G40.909 Epilepsy, unspecified, not intractable, without status epilepticus; I10 Essential (primary) hypertension; J45.909 Unspecified asthma, uncomplicated; L85.3 Xerosis cutis; R82.90 Unspecified abnormal findings in urine; Z88.0 Allergy status to penicillin; Z91.013 Allergy to seafood; Z88.8 Allergy status to other drugs, medicaments and biological substances
CPT/HCPCS: 36415; 80053; 81003; 81015; 85027; 86593; 93005; 93010; J0735